=== PATIENT | male | born 1990 | race Caucasian/White ===

== ENCOUNTER 2017-11-11 17:21 | Emergency (ER) | payer MEDICAID ==
[~2017-11-11] VITALS: Ht 185.4 cm; Wt 90.7 kg
[~2017-11-11 17:21] MED LIST: CEPH500 PO; HYDACE10B PO; HYDACE5 PO; SULTRIDS PO
[2017-11-11 17:49] LABS: Source, Urine Clean Catch
[2017-11-11 17:54] LABS: Appearance, Urine Clear (Clear); Bilirubin, Urine Neg (Neg); Blood, Urine Neg (Neg); Color, Urine Yellow (P-Yellow); Glucose Qualitative, Urine Neg (Neg); Ketones, Urine Neg (Neg); Leukocyte Esterase, Urine 2+ (Neg); Nitrite, Urine Neg (Neg); Protein, Urine Neg (Neg); Urobilinogen, Urine 3+ (Normal); pH, Urine 6.5 (5.0-8.0)
[2017-11-11 18:02] LABS: Bacteria Few /hpf; Red Blood Cells, Urine 0-2 /hpf (0-2); Squamous Epithelial Cells Not Seen /hpf (Few); White Blood Cells, Urine TNTC /hpf (0-5)
[2017-11-11] MEDS ORDERED: Vibramycin100 MG PO (18:19)
== END 2017-11-11 18:30 | disposition home or self-care (01) ==
LOC: ER 17:21
PROVIDERS: Physician Assistant
DX: N39.0 Urinary tract infection, site not specified (principal); G43.909 Migraine, unspecified, not intractable, without status migrainosus; F17.200 Nicotine dependence, unspecified, uncomplicated
CPT/HCPCS: 81001; 87086; 96372; 99283; J0696

== ENCOUNTER → 2022-04-07 | Outpatient (CLI) | payer OTHER ==
[~2022-04-07] MED LIST changes: +Vibramycin100 MG PO
== END ==
LOC: PLD 15:04 → LAB SHORT 15:04
DX: D22.5 Melanocytic nevi of trunk (principal)
CPT/HCPCS: 88305

== ENCOUNTER → 2025-04-04 | Outpatient (CLI) | payer OTHER ==
[~2025-04-04] MED LIST changes: +OMEP20ER PO; +XARELTO15 M1 PO; +XARELTO20 MG PO
[2025-04-04 09:24] LABS: BASOPHILS ABSOLUTE AUTO 0.07 K/mm3 (0.00-0.23); BASOPHILS PERCENT AUTO 1 % (0-2); EOSINOPHILS ABSOLUTE AUTO 0.38 K/mm3 (0.00-0.68); EOSINOPHILS PERCENT AUTO 5 % (0-6); Hematocrit 44.3 % (37.0-53.0); Hemoglobin 15.2 g/dL (13.5-17.5); IMMATURE GRAN ABSOLUTE AUTO 0.02 K/mm3 (0.00-0.10); IMMATURE GRAN PERCENT AUTO 0 % (0-1); LYMPHOCYTES ABSOLUTE AUTO 2.53 K/mm3 (0.84-5.20); LYMPHOCYTES PERCENT AUTO 31 % (21-46); MONOCYTES ABSOLUTE AUTO 0.71 K/mm3 (0.16-1.47); MONOCYTES PERCENT AUTO 9 % (4-13); Mean Corpuscular HGB Conc 34.3 g/dL (31.5-36.5); Mean Corpuscular Volume 89 fL (80-100); NEUTROPHILS ABSOLUTE AUTO 4.55 K/mm3 (1.96-9.15); NEUTROPHILS PERCENT AUTO 55 % (41-73); NRBC ABSOLUTE 0.00 K/mm3 (0.00-0.02); NRBC Auto 0.0 /100 WBC (0.0-0.2); Platelet Count 349 K/mm3 (150-400); RDW Coefficient Variation 12.7 % (11.7-14.2); RDW Standard Deviation 41.4 fL (35.1-46.3)
== END | disposition home or self-care (01) ==
LOC: LAB 09:19 → LAB SHORT 09:19
PROVIDERS: Physician Assistant Medical
DX: M79.604 Pain in right leg (principal)
CPT/HCPCS: 85025; 85379

== ENCOUNTER 2025-04-05 18:08 | Inpatient (IN) | payer OTHER ==
[~2025-04-05] VITALS: Ht 182.9 cm; Wt 150.0 kg
[~2025-04-05 18:08] MED LIST changes: -OMEP20ER PO; -XARELTO15 M1 PO; -XARELTO20 MG PO
[2025-04-05 18:51] LABS: BASOPHILS ABSOLUTE AUTO 0.09 K/mm3 (0.00-0.23); BASOPHILS PERCENT AUTO 1 % (0-2); EOSINOPHILS ABSOLUTE AUTO 0.41 K/mm3 (0.00-0.68); EOSINOPHILS PERCENT AUTO 4 % (0-6); Hematocrit 45.0 % (37.0-53.0); Hemoglobin 15.3 g/dL (13.5-17.5); IMMATURE GRAN ABSOLUTE AUTO 0.02 K/mm3 (0.00-0.10); IMMATURE GRAN PERCENT AUTO 0 % (0-1); LYMPHOCYTES ABSOLUTE AUTO 3.61 K/mm3 (0.84-5.20); LYMPHOCYTES PERCENT AUTO 36 % (21-46); MONOCYTES ABSOLUTE AUTO 0.61 K/mm3 (0.16-1.47); MONOCYTES PERCENT AUTO 6 % (4-13); Mean Corpuscular HGB Conc 34.0 g/dL (31.5-36.5); Mean Corpuscular Volume 91 fL (80-100); NEUTROPHILS ABSOLUTE AUTO 5.21 K/mm3 (1.96-9.15); NEUTROPHILS PERCENT AUTO 52 % (41-73); NRBC ABSOLUTE 0.00 K/mm3 (0.00-0.02); NRBC Auto 0.0 /100 WBC (0.0-0.2); Platelet Count 360 K/mm3 (150-400); RDW Coefficient Variation 12.9 % (11.7-14.2); RDW Standard Deviation 42.3 fL (35.1-46.3)
[2025-04-05 19:18] LABS: Alanine Aminotransfer (ALT/SGP 45.0 U/L (12-78); Albumin, Blood 3.7 g/dL (3.4-5.0); Albumin/Globulin Ratio 1.1 (0.8-1.8); Anion Gap 7.0 mmol/L (3-11); Aspartate Aminotrans (AST/SGOT 20.0 U/L (12-37); Bilirubin, Total 0.4 mg/dL (0.1-1.0); Blood Urea Nitrogen 13.0 mg/dL (8-24); CO2, Blood 27.0 mmol/L (21-32); Calcium, Blood 8.5 mg/dL (8.5-10.1); Chloride, Blood 108.0 mmol/L (98-108); Creatinine, Blood 1.21 mg/dL (0.60-1.20); Globulin, Blood 3.4 g/dL (2.2-4.0); Glucose, Blood 148.0 mg/dL (70-99); Potassium, Blood 3.8 mmol/L (3.5-5.5); Sodium, Blood 138.0 mmol/L (136-145); Total Protein, Blood 7.1 g/dL (6.4-8.2)
[2025-04-05] MEDS ORDERED: Ketorolac Tromethamine 30mg Vial IV ONE (21:05)
[2025-04-05 21:23] LABS: C-REACTIVE PROTEIN, EXT RANGE 0.491 mg/dL (0.000-0.300)
[2025-04-05] MEDS ORDERED: Morphine Sulfate 4 MG/1 ML Injection IV ONE (23:30)
[2025-04-06 00:59] LABS: Anti-Xa UFH, PHA Monitoring <0.10 IU/mL; Prothrombin Time Results 11.2 Sec (9.7-11.5)
[2025-04-06] MEDS ORDERED: Heparin Sodium,Porcine/0.5 NS 500 ML IV SCH (01:15)
[2025-04-06] MEDS ORDERED: Heparin Sodium 5000 Units/ML 1ML MDV IV ONE (01:15)
[2025-04-06] MEDS ORDERED: Morphine Sulfate 4 MG/1 ML Injection IV PRN (02:00)
[2025-04-06] MEDS ORDERED: Naloxone HCl 0.4MG / ML 1ML Vial IV PRN (02:00)
[2025-04-06] MEDS ORDERED: Ondansetron HCl 2 MG / ML 2ML Vial IV PRN (02:00)
[2025-04-06] MEDS ORDERED: FLU VACC TS2025-26(6MOS UP)/PF 45 MCG/0.5 ML SYRINGE IM SCH (02:05)
[2025-04-06 04:21] VITALS: BP 131/78
--- NOTE | 2025-04-06 05:15 | NUR ---
ARRIVAL NOTE PT ARRIVED TO UNIT VIA GURNEY FROM ED R/T DVT IN RLE. PT A/OX4 WITH VSS. REPORTS PAIN AT ASHLEIGH LEVEL. IV HEPARIN INFUSING PER ORDERS. IS NPO WITH PRE SURG SCRUB COMPLETE. ORIENTATION TO ROOM PROVIDED. PT DENIED WANTING TO PUT WALLET IN SAFE. ENCOURAGED TO SEND HOME WITH . PLAN FOR POTENTIAL IR INTERVENTION. ORIENTATION TO ROOM PROVIDED, PT VERBALIZED UNDERSTANDING. PT CURRENTLY RESTING IN BED WITH CALL LIGHT IN REACH.
[2025-04-06 07:02] VITALS: BP 121/80
[2025-04-06 07:28] VITALS: BP 126/84
[2025-04-06 08:06] LABS: BASOPHILS ABSOLUTE AUTO 0.09 K/mm3 (0.00-0.23); BASOPHILS PERCENT AUTO 1 % (0-2); EOSINOPHILS ABSOLUTE AUTO 0.38 K/mm3 (0.00-0.68); EOSINOPHILS PERCENT AUTO 4 % (0-6); Hematocrit 41.6 % (37.0-53.0); Hemoglobin 14.0 g/dL (13.5-17.5); IMMATURE GRAN ABSOLUTE AUTO 0.03 K/mm3 (0.00-0.10); IMMATURE GRAN PERCENT AUTO 0 % (0-1); LYMPHOCYTES ABSOLUTE AUTO 3.57 K/mm3 (0.84-5.20); LYMPHOCYTES PERCENT AUTO 40 % (21-46); MONOCYTES ABSOLUTE AUTO 0.69 K/mm3 (0.16-1.47); MONOCYTES PERCENT AUTO 8 % (4-13); Mean Corpuscular HGB Conc 33.7 g/dL (31.5-36.5); Mean Corpuscular Volume 91 fL (80-100); NEUTROPHILS ABSOLUTE AUTO 4.20 K/mm3 (1.96-9.15); NEUTROPHILS PERCENT AUTO 47 % (41-73); NRBC ABSOLUTE 0.00 K/mm3 (0.00-0.02); NRBC Auto 0.0 /100 WBC (0.0-0.2); Platelet Count 325 K/mm3 (150-400); RDW Coefficient Variation 13.1 % (11.7-14.2); RDW Standard Deviation 43.5 fL (35.1-46.3)
[2025-04-06 08:31] LABS: Magnesium, Blood 2.0 mg/dL (1.6-2.4)
[2025-04-06 08:32] LABS: Alanine Aminotransfer (ALT/SGP 37.0 U/L (12-78); Albumin, Blood 3.4 g/dL (3.4-5.0); Albumin/Globulin Ratio 1.2 (0.8-1.8); Anion Gap 5.0 mmol/L (3-11); Aspartate Aminotrans (AST/SGOT 15.0 U/L (12-37); Bilirubin, Total 0.7 mg/dL (0.1-1.0); Blood Urea Nitrogen 16.0 mg/dL (8-24); CO2, Blood 28.0 mmol/L (21-32); Calcium, Blood 8.4 mg/dL (8.5-10.1); Chloride, Blood 111.0 mmol/L (98-108); Creatinine, Blood 1.19 mg/dL (0.60-1.20); Globulin, Blood 2.9 g/dL (2.2-4.0); Glucose, Blood 88.0 mg/dL (70-99); Potassium, Blood 4.2 mmol/L (3.5-5.5); Sodium, Blood 140.0 mmol/L (136-145); Total Protein, Blood 6.3 g/dL (6.4-8.2)
[2025-04-06] MEDS ORDERED: Pantoprazole Sodium 40 MG Injection IV SCH (09:00)
[2025-04-06 14:24] VITALS: BP 138/87
--- NOTE | 2025-04-06 14:27 | NUR ---
shift summary PT IS A/OX4. NPO PENDING ULTRASOUND RESULTS. PT IS BED REST AT THIS TIME, HE WANTS TO WAIT FOR RESULTS BEFORE AMBULATING OVER FEAR OF CLOTS MOBILIZING. ABLE TO MAKE NEEDS KNOWN. CALL LIGHT IN REACH, BED IN LOWEST POSITION.
[2025-04-06] MEDS ORDERED: Dose Adjust by Pharmacy XX STA (14:30)
--- NOTE | 2025-04-06 18:13 | NUR ---
ASSUMED CARE AND SHIFT SUMMARY PATIENT ALERT AND INTERACTIVE. PATIENT CONTINUES ON HEPARIN GTT. PATIENT NOT GOING TO TRANSLITERATOR AT THIS TIME. PATIENT TO START ORAL ANTICOAGULANTS. SLIGHT REDNESS AND SWELLING NOTED OF INNER THIGH.
[2025-04-06 19:25] VITALS: BP 126/68
[2025-04-07 00:02] VITALS: BP 130/81
[2025-04-07 03:48] VITALS: BP 123/80
[2025-04-07 04:41] LABS: Hematocrit 41.0 % (37.0-53.0); Hemoglobin 13.7 g/dL (13.5-17.5); Platelet Count 306 K/mm3 (150-400)
[2025-04-07] MEDS ORDERED: Dose Adjust by Pharmacy XX STA (05:16)
[2025-04-07] MEDS ORDERED: Heparin Sodium 5000 Units/ML 1ML MDV IV ONE (05:20)
--- NOTE | 2025-04-07 06:30 | NUR ---
SHIFT SUMMARY PT WITH HEPARIN DRIP INFUSING PER ORDER- RATE INCREASED WITH BOLUS GIVEN PER EMAR. SWELLING CONTINUES TO RLE WITH EASILY PALPABLE PEDAL PULSE. PT DANGLED AT EDGE OF BED, AND SLEPT INTERMITTENTLY.
[2025-04-07 07:26] VITALS: BP 122/85
--- NOTE | 2025-04-07 09:06 | NUR ---
ROUND NOTE: DR. ROBERTSON ROUND ON PATIENT DISCUSSED c PLAN OF CARE. RECEICED VO TO GIVE 15 MG PO XARELTO NOW AND DISCONTINUE HIPARIN GTT.
--- NOTE | 2025-04-07 09:18 | NUR ---
HEPARIN GTT DISCONTINUATION NOTE: PATIENT GIVEN PO XARELTO OT DOSE NOW AND HEPARING GTT DC'D AT 0916 PER ORDER.
[2025-04-07] MEDS ORDERED: XARELTO20 MG PO (11:22)
[2025-04-07] MEDS ORDERED: XARELTO15 M1 PO (11:22)
[2025-04-07] MEDS ORDERED: OMEP20ER PO (11:23)
[2025-04-07 11:29] VITALS: BP 130/77
--- NOTE | 2025-04-07 11:52 | NUR ---
SHIFT/DISCHARGE SUMMARY: PATIENT A/OX4, PLEASANT AND COOPERATIVE c CARE. PATIENT DENIES CP/PRESSURE, SOB, N/V AND DIZZINESS. PATIENT HAS HAD NO EVENTS ON TELE, SR IN 80'S BPM c OCCASIONAL BBB. PATIENT RECEIVED SCHEDULED MEDS PER EMAR. VITAL SIGNS REVIEWED. PATIENT HAS HAD NO COMPLAINTS OR DENIES NEW CONCERN THIS SHIFT. PIV DC'D. PATIENT DISCHARGE HOME. DISCHARGE INSTRUCTIONS PACKET GIVEN TO PATIENT. PATIENT EDUCATED ON ADMITTING DX'S OF R LEG DVT, S/S, TX, SELF CARE AT HOME, NEW RX AND TO F/U c PCP. PATIENT VERBALIZED UNDERSTANDING, ALL QUESTIONS WERE ANSWERED PER PATIENT c NO FURTHER QUESTION AT THIS TIME. RX WAS FAXED TO PATIENT PREFERRED [facility]. ALL PERSONAL BELONGINGS WERE SENT c PATIENT. PATIENT LEFT THE ROOM AT 1146, TRANSPORTED VIA BY JUSTIN TO PATIENT ENTRANCE-RIDE AWAITING FOR HIM.
== END 2025-04-07 11:47 | disposition home or self-care (01) | DRG 301 ==
LOC: ER 18:08 → MEDS 04-06 01:57 → SURS 04-06 01:57
PROVIDERS: Emergency Medicine; Student in an Organized Health Care Education/Training Program; ADMIT Student in an Organized Health Care Education/Training Program
PROC: 5A09357 Assistance with Respiratory Ventilation, Less than 24 Consecutive Hours, Continuous Positive Airway Pressure (ICD-10-PCS; principal; 2025-04-06)
DX: I82.441 Acute embolism and thrombosis of right tibial vein (principal); I82.811 Embolism and thrombosis of superficial veins of right lower extremity; G47.33 Obstructive sleep apnea (adult) (pediatric); K21.9 Gastro-esophageal reflux disease without esophagitis; F17.210 Nicotine dependence, cigarettes, uncomplicated; Z99.89 Dependence on other enabling machines and devices; Z71.6 Tobacco abuse counseling
CPT/HCPCS: 36415; 80053; 83735; 85014; 85018; 85025; 85049; 85520; 85610; 85651; 85730; 86140; 93971; 94762; 96365; 96375; 99285-25; A9270; J1644; J1885; J2270; J2470